=== PATIENT | female | born 1965 ===

== ENCOUNTER 2017-12-20 14:23 | Emergency (ER) | payer OTHER ==
[2017-12-20] MEDS ORDERED: ALBUTEROL/IPRATROPIUM 1 VIAL SOL INH ONE ×2 (14:24→15:45)
[2017-12-20] MEDS ORDERED: ALBUTEROL/IPRATROPIUM 1 VIAL SOL ONE ×2 (14:28→15:49)
[2017-12-20] MEDS ORDERED: SODIUM CHLORIDE 0.9% FLUSH 10 ML SOL IV PRN (14:43)
[2017-12-20] MEDS ORDERED: SOLUMEDROL 125 MG/2 ML 125 MG/2 ML PDS ONE (14:43)
[2017-12-20] MEDS ORDERED: SOLUMEDROL 125 MG/2 ML 125 MG/2 ML PDS IV ONE (14:43)
[2017-12-20 14:46] LABS: HEMATOCRIT 45 % (35-47); HEMOGLOBIN 14.7 gm/dl (12.0-15.5); MEAN CORPUSCULAR HEMOGLOBIN 29.3 pg (27.0-32.0); MEAN CORPUSCULAR HGB CONC 32.5 gm/dl (32.0-36.0); MEAN CORPUSCULAR VOLUME 90 fL (81-99)
[2017-12-20 14:56] VITALS: BP 92/62; TEMP 96.5
[2017-12-20 15:12] LABS: BAND NEUTROPHILS % (MANUAL) 0 %; BASOPHILS % (MANUAL) 0 % (0-3); EOSINOPHILS % (MANUAL) 0 % (0-9); LYMPHOCYTES % (MANUAL) 34 % (10-50); MONOCYTES % (MANUAL) 9 % (0-12); NEUTROPHILS % (MANUAL) 57 % (37-80); NORMAL RBCS PRESENT
[2017-12-20 15:23] LABS: ABG PH 7.43 (7.35-7.45)
[2017-12-20 15:56] VITALS: PULSE 64; RESP 15; O2SAT 97
== END 2017-12-20 16:30 | disposition home or self-care (01) | DRG 192 ==
LOC: ED 14:23
DX: J44.1 Chronic obstructive pulmonary disease with (acute) exacerbation (principal); F17.210 Nicotine dependence, cigarettes, uncomplicated
CPT/HCPCS: 36600; 82803; 83880; 85007; 85027; 96374; 99283; 99284; J2930

== ENCOUNTER 2018-08-09 00:52 | Emergency (ER) | payer OTHER ==
[2018-08-09 01:00] VITALS: TEMP 97.3
[2018-08-09] MEDS ORDERED: TETRACAINE HCL 0.5 % 1 DROP SOL ONE (01:04)
[2018-08-09] MEDS ORDERED: CLONIDINE 0.1 MG TAB PO ONE ×2 (01:04→01:25)
[2018-08-09] MEDS ORDERED: TETRACAINE HCL 0.5 % 1 DROP SOL LEFTEYE ONE (01:05)
[2018-08-09] MEDS ORDERED: CLONIDINE 0.1 MG TAB ONE ×2 (01:06→01:20)
[2018-08-09] MEDS ORDERED: ERYTHROMYCIN OPTHAL 1 GM TUBE ONE (01:14)
[2018-08-09] MEDS ORDERED: DIPHENHYDRAMINE 25 MG CAP ONE (01:15)
[2018-08-09] MEDS ORDERED: ERYTHROMYCIN OPTHAL 1 GM TUBE OP ONE (01:15)
[2018-08-09] MEDS ORDERED: DIPHENHYDRAMINE 25 MG CAP PO ONE (01:15)
[2018-08-09] MEDS ORDERED: AMLODIPINE 5 MG TAB ONE (01:29)
[2018-08-09] MEDS ORDERED: AMLODIPINE 5 MG TAB PO SCH ×2 (01:30)
[2018-08-09 01:44] VITALS: RESP 20
[2018-08-09] MEDS ORDERED: HYDRALAZINE HYDROCHLORIDE 10 MG TAB PO SCH (02:00)
[2018-08-09] MEDS ORDERED: HYDRALAZINE HYDROCHLORIDE 10 MG TAB ONE (02:02)
[2018-08-09 02:12] VITALS: O2SAT 96
[2018-08-09 02:42] VITALS: BP 166/80; PULSE 55
== END 2018-08-09 03:00 | disposition home or self-care (01) | DRG 951 ==
LOC: ED 00:52
DX: Z77.098 Contact with and (suspected) exposure to other hazardous, chiefly nonmedicinal, chemicals (principal); T15.90XA Foreign body on external eye, part unspecified, unspecified eye, initial encounter; H57.13 Ocular pain, bilateral; I10 Essential (primary) hypertension
CPT/HCPCS: 99283; A9270-GY

== ENCOUNTER 2018-08-31 22:57 | Emergency (ER) | payer OTHER ==
[2018-08-31] MEDS ORDERED: SODIUM CHLORIDE 0.9% FLUSH 10 ML SOL IV PRN (23:01)
[2018-08-31 23:31] LABS: BASOPHILS % (AUTO) 0 % (0-3); EOSINOPHILS % (AUTO) 2 % (0-9); HEMATOCRIT 50 % (35-47); HEMOGLOBIN 16.7 gm/dl (12.0-15.5); LYMPHOCYTES % (AUTO) 14.8 % (10-50); MEAN CORPUSCULAR HEMOGLOBIN 28.9 pg (27.0-32.0); MEAN CORPUSCULAR HGB CONC 33.2 gm/dl (32.0-36.0); MEAN CORPUSCULAR VOLUME 87 fL (81-99); MONOCYTES % (AUTO) 4.5 % (0-12); NEUTROPHILS % (AUTO) 78.9 % (37-80)
[2018-08-31] MEDS ORDERED: SODIUM CHLORIDE 0.9% 1000ML 1,000 ML IV SCH (23:45)
[2018-08-31 23:50] LABS: CALCIUM 8.9 mg/dl (8.5-10.1); CREATININE 2.19 mg/dl (0.60-1.00); INR 0.97 (0.86-1.12); TROP I 0.017 ng/ml (0.000-0.056)
[2018-08-31] MEDS ORDERED: POTASSIUM CHLORIDE 2 MEQ/ML 40 MEQ, LIDOCAINE HCL 1% MDV 2 ML in SODIUM CHLORIDE 0.9% 5... IV ONE (23:55)
[2018-08-31] MEDS ORDERED: LIDOCAINE HCL 1% MPF 30 SOL ONE (23:59)
[2018-09-01] MEDS ORDERED: POTASSIUM CHLORIDE 2 MEQ/ML SOL IV ONE (00:03)
[2018-09-01 00:45] VITALS: BP 137/63; PULSE 59; RESP 20; O2SAT 93
== END 2018-09-01 00:39 | disposition short-term general hospital (02) | DRG 93 ==
LOC: ED 22:57
DX: R29.818 Other symptoms and signs involving the nervous system (principal); R29.716 NIHSS score 16
CPT/HCPCS: 70450; 80048; 82962; 83735; 84484; 85025; 85610; 85730; 93005; 96365; 99284; 99291; J3480; J2001

== ENCOUNTER 2018-11-12 11:02 | Emergency (ER) | payer OTHER | END 2018-11-12 13:07 | disposition short-term general hospital (02) | LOC: ED 11:02 ==